=== PATIENT | male | born 1965 | race Caucasian/White ===

== ENCOUNTER 2016-05-22 13:28 | Emergency (ER) | payer OTHER | END 2016-05-22 15:46 | disposition home or self-care (01) | LOC: ER1 13:28 | DX: M10.9 Gout, unspecified (principal); I10 Essential (primary) hypertension; Z79.899 Other long term (current) drug therapy | CPT/HCPCS: 36415; 73110; 84550; 86140; 96372; 99283; J1100; J1885 ==